=== PATIENT | female | born 1960 | race Caucasian/White ===

== ENCOUNTER 2017-08-07 16:15 | Inpatient (IN) | payer OTHER ==
[2017-08-06] MEDS: PHYTONADIONE 10 MG/1 ML AMPUL SQ SCH (00:45)
[~2017-08-07] VITALS: Ht 165.1 cm; Wt 63.5 kg
[2017-08-07] MEDS: MEROPENEM 1 G in IV NORMAL SALINE 100 ML IV SCH (00:45)
[2017-08-07] MEDS ORDERED: LORA2TAB95 PO (16:42)
[2017-08-07] MEDS ORDERED: PANT40TA4 PO (16:42)
[2017-08-07] MEDS ORDERED: LACT10SO PO (16:42)
[2017-08-07] MEDS ORDERED: MAG360OR61 PO (16:42)
[2017-08-07] MEDS ORDERED: ZOLP5TAB2 PO (16:42)
[2017-08-07] MEDS ORDERED: METR500T PO (16:42)
[2017-08-07] MEDS ORDERED: LEVO750T21 PO (16:42)
[2017-08-07] MEDS ORDERED: MAGN400O6 PO (16:42)
[2017-08-07] MEDS ORDERED: ACET-2154 PO (16:42)
[2017-08-07] MEDS ORDERED: PROP10TA10 PO (16:42)
[2017-08-07] MEDS ORDERED: THIA100T13 PO (16:42)
[2017-08-07] MEDS ORDERED: HYDR-3326 PO (16:42)
[2017-08-07] MEDS ORDERED: SPIR50TA PO (16:42)
[2017-08-07] MEDS ORDERED: FOLI1TAB16 PO (16:42)
[2017-08-07] MEDS ORDERED: ONDA4TAB5 PO (16:42)
[2017-08-07] MEDS ORDERED: IV NORMAL SALINE 1000 ML BAG IV ONE (16:45)
[2017-08-07 17:34] LABS: BILIRUBIN,DIRECT 6.6 mg/dL (0.0-0.2); BILIRUBIN,TOTAL 10.2 mg/dL (0.2-1.0); CREATININE 0.5 mg/dL (0.6-1.3); POTASSIUM 3.1 mmol/L (3.5-5.1); TOTAL PROTEIN, SERUM 5.3 g/dL (6.4-8.2)
[2017-08-07 17:42] LABS: THYROID STIMULATING HORMONE 1.997 mIU/mL (0.358-3.740)
[2017-08-07 17:45] LABS: MAGNESIUM 1.6 mg/dL (1.8-2.4)
[2017-08-07] MEDS ORDERED: PIPERACILLIN SODIUM/TAZOBACTAM 3.375 G in IV DEXTROSE 5% 50 ML IV ONE (17:45)
[2017-08-07] MEDS ORDERED: LEVOFLOXACIN 750 MG/D5W 150 ML PIGGYBACK IV ONE (17:45)
[2017-08-07] MEDS ORDERED: PIPERACILLIN/TAZOBACTAM/D5W 50 ML IV ONE (17:46)
[2017-08-07] MEDS ORDERED: LEVOFLOXACIN 750MG/D5W 150 ML IV ONE (17:46)
[2017-08-07] MEDS ORDERED: MAGNESIUM SULFATE/D5W 100 ML IV SCH (18:00)
[2017-08-07] MEDS ORDERED: POTASSIUM CHLORIDE 50 ML IV SCH (18:00)
[2017-08-07 18:09] LABS: BASOPHILS % (AUTO) 0.3 % (0.0-2.0); EOSINOPHILS # (AUTO) 0.2 K/uL (0.0-0.7); EOSINOPHILS % (AUTO) 1.8 % (0.0-7.0); HEMATOCRIT 30.6 % (31.2-41.9); HEMOGLOBIN 10.5 g/dL (10.9-14.3); LYMPHOCYTES # (AUTO) 0.7 K/uL (20.0-40.0); LYMPHOCYTES % (AUTO) 6.1 % (20.5-51.5); MEAN CORPUSCULAR HEMOGLOBIN 38.6 uug (24.7-32.8); MEAN CORPUSCULAR HGB CONC 34 g/dL (32.3-35.6); MEAN CORPUSCULAR VOLUME 112.5 fL (75.5-95.3); MONOCYTES # (AUTO) 0.8 K/uL (2.0-10.0); MONOCYTES % (AUTO) 6.8 % (0.0-11.0); NEUTROPHILS # (AUTO) 9.6 K/uL (1.8-8.9); RED BLOOD CELL COUNT(AUTO) 2.72 MIL/uL (3.63-4.92); WHITE BLOOD COUNT (AUTO) 11.4 K/uL (3.8-11.8)
[2017-08-07 18:10] LABS: PLATELET COUNT (AUTO) 43 K/uL (179-408)
[2017-08-07 18:27] LABS: BAND % (MANUAL) 5 % (0-10); NEUTROPHILS % (MANUAL) 80 % (42-75)
[2017-08-07 18:28] LABS: EOSINOPHILS % (MANUAL) 1 % (0-8); LYMPHOCYTES % (MANUAL) 9 % (20-40); MONOCYTES % (MANUAL) 5 % (2-10)
[2017-08-07] MEDS ORDERED: MAGNESIUM SULFATE/D5W 100 ML ONE (18:33)
[2017-08-07] MEDS ORDERED: POTASSIUM CHLORIDE 50 ML ONE (19:42)
[2017-08-07 21:43] VITALS: BP 97/54
[2017-08-07] MEDS ORDERED: MORPHINE SULFATE 4 MG/1 ML DISP.SYRIN IV PRN (23:00)
[2017-08-07] MEDS ORDERED: POTASSIUM CHLORIDE 20 MEQ in IV D5/ 0.9% NACL 1,000 ML IV PRN (23:00)
[2017-08-07] MEDS ORDERED: ALBUTEROL SULFATE 2.5 MG/3 ML NEBU NEB PRN (23:00)
[2017-08-07] MEDS ORDERED: IPRATROPIUM BROMIDE 0.5 MG/2.5 ML NEBU NEB PRN (23:00)
[2017-08-07] MEDS: LEVOFLOXACIN 500 MG/D5W 500 MG in PREMIXED 1 EACH IV SCH (23:00)
[2017-08-07] MEDS ORDERED: VANCOMYCIN IV 1,000 MG in IV DEXTROSE 5% 250 ML IV SCH (23:45)
[2017-08-08 00:07] VITALS: BP 103/50
[2017-08-08] MEDS ORDERED: MEROPENEM 1 G VIAL IV ONE (00:18)
[2017-08-08] MEDS: MEROPENEM 1 G in IV NORMAL SALINE 100 ML IV SCH ×4 (01:35→22:02)
[2017-08-08] MEDS ORDERED: VANCOMYCIN 1000 MG VIAL ONE (01:42)
[2017-08-08 04:00] VITALS: BP 103/57
[2017-08-08] MEDS ORDERED: PIPERACILLIN/TAZOBACTAM/D5W 3.375 G in PREMIXED 1 EACH IV SCH (06:00)
[2017-08-08 07:09] LABS: ALANINE AMINOTRANSFERASE 15 U/L (14-59); ALKALINE PHOSPHATASE 96 U/L (50-136); ASPARTATE AMINOTRANSFERASE 50 U/L (15-37); BILIRUBIN,TOTAL 9.9 mg/dL (0.2-1.0); CARBON DIOXIDE 28 mmol/L (21-32); CHLORIDE 104 mmol/L (98-107); CREATININE 0.6 mg/dL (0.6-1.3); GLUCOSE 65 mg/dL (74-106); HDL CHOLESTEROL 21 mg/dL (40-60); MAGNESIUM 1.6 mg/dL (1.8-2.4); PHOSPHOROUS 2.4 mg/dL (2.5-4.9); POTASSIUM 3.2 mmol/L (3.5-5.1); TOTAL PROTEIN, SERUM 5.1 g/dL (6.4-8.2); TRIGLYCERIDES 45 MG/DL (30-150); UREA NITROGEN, BLOOD 9 mg/dL (7-18)
[2017-08-08 07:14] LABS: IRON, SERUM 117 ug/dL (50-175)
[2017-08-08 07:41] LABS: CHOLESTEROL < 50 mg/dL (<200)
[2017-08-08 07:49] LABS: BASOPHILS # (AUTO) 0.1 K/uL (0.0-8.0); BASOPHILS % (AUTO) 0.8 % (0.0-2.0); EOSINOPHILS # (AUTO) 0.1 K/uL (0.0-0.7); LYMPHOCYTES # (AUTO) 0.6 K/uL (20.0-40.0)
[2017-08-08 07:51] LABS: EOSINOPHILS % (AUTO) 1.4 % (0.0-7.0); HEMATOCRIT 30.3 % (31.2-41.9); HEMOGLOBIN 10.3 g/dL (10.9-14.3); LYMPHOCYTES % (AUTO) 6.4 % (20.5-51.5); MEAN CORPUSCULAR HEMOGLOBIN 38.5 uug (24.7-32.8); MEAN CORPUSCULAR HGB CONC 34 g/dL (32.3-35.6); MEAN CORPUSCULAR VOLUME 112.9 fL (75.5-95.3); MONOCYTES # (AUTO) 0.7 K/uL (2.0-10.0); MONOCYTES % (AUTO) 7.9 % (0.0-11.0); NEUTROPHILS # (AUTO) 7.6 K/uL (1.8-8.9); NEUTROPHILS % (AUTO) 83.5 % (38.5-71.5); RED BLOOD CELL COUNT(AUTO) 2.68 MIL/uL (3.63-4.92); WHITE BLOOD COUNT (AUTO) 9.1 K/uL (3.8-11.8)
[2017-08-08 07:58] LABS: PLATELET COUNT (AUTO) 37 K/uL (179-408)
[2017-08-08] MEDS: FAMOTIDINE. 20 MG/2 ML VIAL IV SCH ×2 (09:01→20:40)
[2017-08-08 09:42] LABS: BAND % (MANUAL) 4 % (0-10); LYMPHOCYTES % (MANUAL) 6 % (20-40); METAMYELOCYTES % 7 % (0-1); MONOCYTES % (MANUAL) 3 % (2-10); MYELOCYTES % 1 % (0-0); NEUTROPHILS % (MANUAL) 79 % (42-75)
[2017-08-08 10:06] LABS: *BLOOD, URINE NEGATIVE (NEGATIVE); *CLARITY,URINE SLIGHTLY CLOUDY (CLEAR); *COLOR,URINE YELLOW (YELLOW); *KETONES,URINE NEGATIVE (NEGATIVE); *PROTEIN,URINE NEGATIVE (NEGATIVE); *UROBILINOGEN,URINE 0.2 E.U./dl (NORMAL); LEUKOCYTE ESTERASE ,URINE NEGATIVE (NEGATIVE); NITRITE, URINE NEGATIVE (NEGATIVE); UGLUCOSE NEGATIVE (NEGATIVE)
[2017-08-08] MEDS ORDERED: MAGNESIUM OXIDE 400 MG TABLET PO ONE (10:30)
[2017-08-08 10:44] LABS: *BILIRUBIN,URIN 1+ (NEGATIVE)
[2017-08-08 10:45] LABS: BACTERIA,URINE NONE SEEN /HPF (NONE SEEN); MUCUS,URINE FEW /LPF (0-FEW); RBC,URINE 0-3 /HPF (0-3); SQUAMOUS EPITHELIAL CELL,UR MODERATE /HPF (NONE SEEN); YEAST,URINE MODERATE /HPF (NONE SEEN)
[2017-08-08 11:32] VITALS: BP 100/55
[2017-08-08] MEDS: POTASSIUM PHOSPHATE MM 7.5 MMOL in IV DEXTROSE 5% 100 ML IV SCH ×2 (11:52→19:00)
[2017-08-08] MEDS: PROTEIN SUPPLEMENT (PROSTAT) 30 ML LIQUID PO SCH ×2 (11:52→17:29)
[2017-08-08] MEDS ORDERED: FLUCONAZOLE 200 MG/NS 100ML IV 100 MG in PREMIXED 1 EACH IV SCH (13:00)
[2017-08-08] MEDS ORDERED: MICAFUNGIN SODIUM 100 MG in IV NORMAL SALINE 100 ML IV SCH (14:00)
[2017-08-08 15:42] VITALS: BP 108/51
[2017-08-08] MEDS ORDERED: NEUTRA PHOS PACKET PO ONE (17:15)
[2017-08-08] MEDS: VANCOMYCIN IV 1 G in PREMIXED 0 EACH IV SCH ×2 (17:30→23:01)
[2017-08-08 20:36] VITALS: BP 102/55
[2017-08-08] MEDS: PHYTONADIONE 10 MG/1 ML AMPUL SQ SCH (23:01)
[2017-08-08] MEDS: LEVOFLOXACIN 500 MG/D5W 500 MG in PREMIXED 1 EACH IV SCH (23:09)
[2017-08-09] VITALS: BP 115/62
[2017-08-09] MEDS: VANCOMYCIN IV 1 G in PREMIXED 0 EACH IV SCH (02:10)
[2017-08-09 04:00] VITALS: BP 104/57
[2017-08-09] MEDS: MEROPENEM 1 G in IV NORMAL SALINE 100 ML IV SCH ×2 (05:09→17:15)
[2017-08-09 06:51] LABS: BASOPHILS # (AUTO) 0.1 K/uL (0.0-8.0); BASOPHILS % (AUTO) 0.9 % (0.0-2.0); EOSINOPHILS # (AUTO) 0.1 K/uL (0.0-0.7); EOSINOPHILS % (AUTO) 1.6 % (0.0-7.0); HEMATOCRIT 27.8 % (31.2-41.9); HEMOGLOBIN 9.7 g/dL (10.9-14.3); LYMPHOCYTES # (AUTO) 0.7 K/uL (20.0-40.0); MEAN CORPUSCULAR HEMOGLOBIN 40.6 uug (24.7-32.8); MEAN CORPUSCULAR HGB CONC 35 g/dL (32.3-35.6); MEAN CORPUSCULAR VOLUME 116.4 fL (75.5-95.3); MONOCYTES % (AUTO) 11.9 % (0.0-11.0); NEUTROPHILS # (AUTO) 6.2 K/uL (1.8-8.9); NEUTROPHILS % (AUTO) 76.6 % (38.5-71.5); WHITE BLOOD COUNT (AUTO) 8.1 K/uL (3.8-11.8)
[2017-08-09 07:06] LABS: RED BLOOD CELL COUNT(AUTO) 2.39 MIL/uL (3.63-4.92)
[2017-08-09 07:09] LABS: PLATELET COUNT (AUTO) 43 K/uL (179-408)
[2017-08-09 07:43] LABS: BILIRUBIN,TOTAL 8.7 mg/dL (0.2-1.0); CREATININE 0.7 mg/dL (0.6-1.3); MAGNESIUM 1.5 mg/dL (1.8-2.4); PHOSPHOROUS 1.9 mg/dL (2.5-4.9); POTASSIUM 3.3 mmol/L (3.5-5.1); TOTAL PROTEIN, SERUM 5.2 g/dL (6.4-8.2)
[2017-08-09] MEDS: PROTEIN SUPPLEMENT (PROSTAT) 30 ML LIQUID PO SCH ×3 (08:00→17:59)
[2017-08-09] MEDS: FAMOTIDINE. 20 MG/2 ML VIAL IV SCH ×2 (08:15→21:31)
[2017-08-09 09:11] LABS: BAND % (MANUAL) 5 % (0-10); EOSINOPHILS % (MANUAL) 3 % (0-8); LYMPHOCYTES % (MANUAL) 7 % (20-40); METAMYELOCYTES % 3 % (0-1); MONOCYTES % (MANUAL) 7 % (2-10); MYELOCYTES % 2 % (0-0); NEUTROPHILS % (MANUAL) 73 % (42-75)
[2017-08-09] MEDS ORDERED: Z GUARD REMEDY PASTE 57 GM TUBE TOP PRN (10:30)
[2017-08-09] MEDS: MAGNESIUM SULFATE/D5W 100 ML IV SCH ×2 (11:58→14:04)
[2017-08-09 12:06] VITALS: BP 94/49
[2017-08-09 15:12] VITALS: BP 97/55
[2017-08-09] MEDS: POTASSIUM PHOSPHATE MM 5 MMOL in IV DEXTROSE 5% 100 ML IV SCH ×2 (15:16→18:30)
[2017-08-09] MEDS ORDERED: VANCOMYCIN IV 750 MG in IV DEXTROSE 5% 250 ML IV SCH (16:00)
[2017-08-09] MEDS: VANCOMYCIN IV 750 MG in IV DEXTROSE 5% 250 ML IV SCH (17:24)
[2017-08-09] MEDS: Z GUARD REMEDY PASTE 57 GM TUBE TOP PRN (18:54)
[2017-08-09 20:05] VITALS: BP 99/61
[2017-08-09] MEDS: MICAFUNGIN SODIUM 100 MG in IV NORMAL SALINE 100 ML IV SCH (21:31)
[2017-08-09] MEDS: LEVOFLOXACIN 500 MG/D5W 500 MG in PREMIXED 1 EACH IV SCH (23:16)
[2017-08-09] MEDS: PHYTONADIONE 10 MG/1 ML AMPUL SQ SCH (23:18)
[2017-08-10] MEDS: MEROPENEM 1 G in IV NORMAL SALINE 100 ML IV SCH ×3 (00:59→16:48)
[2017-08-10] MEDS: POTASSIUM PHOSPHATE MM 5 MMOL in IV DEXTROSE 5% 100 ML IV SCH ×2 (01:15→04:40)
[2017-08-10] MEDS: VANCOMYCIN IV 750 MG in IV DEXTROSE 5% 250 ML IV SCH ×2 (03:09→10:51)
[2017-08-10 05:23] VITALS: BP 110/56
[2017-08-10] MEDS: PROTEIN SUPPLEMENT (PROSTAT) 30 ML LIQUID PO SCH ×3 (08:00→16:34)
[2017-08-10] MEDS ORDERED: IOHEXOL 300MG/ML 100 ML INFUS..BTL ONE (08:08)
[2017-08-10] MEDS ORDERED: IV NORMAL SALINE 100 ML ONE (08:08)
[2017-08-10] MEDS: FAMOTIDINE. 20 MG/2 ML VIAL IV SCH ×2 (09:00→20:43)
[2017-08-10 11:30] VITALS: BP 110/69
[2017-08-10] MEDS ORDERED: POTASSIUM PHOSPHATE MM 7.5 MMOL in IV DEXTROSE 5% 100 ML IV SCH (12:15)
[2017-08-10] MEDS ORDERED: MAGNESIUM SULFATE/D5W 100 ML IV SCH (12:15)
[2017-08-10] MEDS: LORAZEPAM 2 MG/1 ML VIAL IV PRN (15:21)
[2017-08-10 15:52] LABS: BASOPHILS # (AUTO) 0.1 K/uL (0.0-8.0); BASOPHILS % (AUTO) 0.6 % (0.0-2.0); CREATININE 0.5 mg/dL (0.6-1.3); EOSINOPHILS # (AUTO) 0.1 K/uL (0.0-0.7); EOSINOPHILS % (AUTO) 0.8 % (0.0-7.0); HEMATOCRIT 28.6 % (31.2-41.9); HEMOGLOBIN 9.9 g/dL (10.9-14.3); LYMPHOCYTES % (AUTO) 9.9 % (20.5-51.5); MEAN CORPUSCULAR HEMOGLOBIN 39.3 uug (24.7-32.8); MEAN CORPUSCULAR HGB CONC 35 g/dL (32.3-35.6); MEAN CORPUSCULAR VOLUME 113.8 fL (75.5-95.3); MONOCYTES # (AUTO) 1.6 K/uL (2.0-10.0); MONOCYTES % (AUTO) 15.6 % (0.0-11.0); NEUTROPHILS # (AUTO) 7.3 K/uL (1.8-8.9); NEUTROPHILS % (AUTO) 73.1 % (38.5-71.5); POTASSIUM 3.2 mmol/L (3.5-5.1); RED BLOOD CELL COUNT(AUTO) 2.51 MIL/uL (3.63-4.92)
[2017-08-10 15:58] LABS: BILIRUBIN,TOTAL 8.4 mg/dL (0.2-1.0); MAGNESIUM 1.3 mg/dL (1.8-2.4); PHOSPHOROUS 1.9 mg/dL (2.5-4.9); PLATELET COUNT (AUTO) 51 K/uL (179-408); TOTAL PROTEIN, SERUM 5.4 g/dL (6.4-8.2)
[2017-08-10 16:21] LABS: NEUTROPHILS % (MANUAL) 70 % (42-75)
[2017-08-10 16:22] LABS: BAND % (MANUAL) 5 % (0-10); METAMYELOCYTES % 3 % (0-1)
[2017-08-10 16:23] LABS: EOSINOPHILS % (MANUAL) 1 % (0-8); LYMPHOCYTES % (MANUAL) 13 % (20-40); MONOCYTES % (MANUAL) 8 % (2-10)
[2017-08-10] MEDS: VANCOMYCIN IV 1 G in PREMIXED 0 EACH IV SCH (18:20)
[2017-08-10 20:25] VITALS: BP 101/58
[2017-08-10] MEDS: MICAFUNGIN SODIUM 100 MG in IV NORMAL SALINE 100 ML IV SCH (20:44)
[2017-08-10] MEDS: LEVOFLOXACIN 500 MG/D5W 500 MG in PREMIXED 1 EACH IV SCH (22:24)
[2017-08-10] MEDS ORDERED: MAGNESIUM SULFATE/D5W 100 ML ONE (23:41)
[2017-08-10] MEDS ORDERED: IV DEXTROSE 5%-0.9%NS+20MeqKCL 1,000 ML IV ONE (23:46)
[2017-08-10] MEDS: MAGNESIUM SULFATE/D5W 100 ML IV SCH (23:54)
[2017-08-11] MEDS: POTASSIUM CHLORIDE 20 MEQ in IV D5/ 0.9% NACL 1,000 ML IV PRN (00:13)
[2017-08-11] MEDS: MEROPENEM 1 G in IV NORMAL SALINE 100 ML IV SCH ×3 (00:23→17:35)
[2017-08-11] MEDS: MAGNESIUM SULFATE/D5W 100 ML IV SCH ×2 (00:55→01:40)
[2017-08-11] MEDS: POTASSIUM PHOSPHATE MM 5 MMOL in IV DEXTROSE 5% 100 ML IV SCH ×4 (01:12→05:43)
[2017-08-11] MEDS: VANCOMYCIN IV 1 G in PREMIXED 0 EACH IV SCH ×3 (02:22→20:19)
[2017-08-11 06:00] VITALS: BP 102/58
[2017-08-11 06:39] LABS: BASOPHILS # (AUTO) 0.1 K/uL (0.0-8.0); BASOPHILS % (AUTO) 0.9 % (0.0-2.0); EOSINOPHILS # (AUTO) 0.1 K/uL (0.0-0.7); EOSINOPHILS % (AUTO) 0.8 % (0.0-7.0); HEMATOCRIT 26.8 % (31.2-41.9); HEMOGLOBIN 9.4 g/dL (10.9-14.3); LYMPHOCYTES % (AUTO) 13.6 % (20.5-51.5); MEAN CORPUSCULAR HEMOGLOBIN 40.5 uug (24.7-32.8); MEAN CORPUSCULAR HGB CONC 35 g/dL (32.3-35.6); MEAN CORPUSCULAR VOLUME 115.8 fL (75.5-95.3); MONOCYTES # (AUTO) 1.2 K/uL (2.0-10.0); MONOCYTES % (AUTO) 15.9 % (0.0-11.0); NEUTROPHILS # (AUTO) 5.2 K/uL (1.8-8.9); NEUTROPHILS % (AUTO) 68.8 % (38.5-71.5); WHITE BLOOD COUNT (AUTO) 7.5 K/uL (3.8-11.8)
[2017-08-11 06:56] LABS: RED BLOOD CELL COUNT(AUTO) 2.32 MIL/uL (3.63-4.92)
[2017-08-11 06:58] LABS: BILIRUBIN,TOTAL 7.9 mg/dL (0.2-1.0); CREATININE 0.5 mg/dL (0.6-1.3); MAGNESIUM 1.9 mg/dL (1.8-2.4); PHOSPHOROUS 2.4 mg/dL (2.5-4.9); PLATELET COUNT (AUTO) 46 K/uL (179-408); POTASSIUM 3.2 mmol/L (3.5-5.1); TOTAL PROTEIN, SERUM 5.2 g/dL (6.4-8.2)
[2017-08-11] MEDS: PROTEIN SUPPLEMENT (PROSTAT) 30 ML LIQUID PO SCH ×3 (08:00→17:00)
[2017-08-11 08:37] LABS: BAND % (MANUAL) 2 % (0-10); EOSINOPHILS % (MANUAL) 1 % (0-8); LYMPHOCYTES % (MANUAL) 15 % (20-40); MONOCYTES % (MANUAL) 14 % (2-10); NEUTROPHILS % (MANUAL) 68 % (42-75)
[2017-08-11] MEDS: FAMOTIDINE. 20 MG/2 ML VIAL IV SCH ×2 (09:08→21:36)
[2017-08-11] MEDS: FUROSEMIDE 20 MG/2 ML VIAL IV SCH (09:08)
[2017-08-11 12:01] VITALS: BP 101/70
[2017-08-11 15:14] VITALS: BP 95/60
[2017-08-11] MEDS: POTASSIUM PHOSPHATE MM 7.5 MMOL in IV DEXTROSE 5% 100 ML IV SCH ×2 (15:47→21:02)
[2017-08-11 20:00] VITALS: BP 105/62
[2017-08-11] MEDS: MICAFUNGIN SODIUM 100 MG in IV NORMAL SALINE 100 ML IV SCH (21:36)
[2017-08-12] MEDS: MEROPENEM 1 G in IV NORMAL SALINE 100 ML IV SCH ×3 (00:32→17:52)
[2017-08-12] MEDS: VANCOMYCIN IV 1 G in PREMIXED 0 EACH IV SCH ×3 (01:24→18:52)
[2017-08-12 06:00] VITALS: BP 104/64
[2017-08-12 07:03] LABS: EOSINOPHILS # (AUTO) 0.1 K/uL (0.0-0.7); HEMOGLOBIN 9.9 g/dL (10.9-14.3); LYMPHOCYTES # (AUTO) 0.8 K/uL (20.0-40.0); MEAN CORPUSCULAR HEMOGLOBIN 39.6 uug (24.7-32.8); MONOCYTES % (AUTO) 17.4 % (0.0-11.0)
[2017-08-12 07:05] LABS: BASOPHILS % (AUTO) 0.7 % (0.0-2.0); EOSINOPHILS % (AUTO) 1.4 % (0.0-7.0); HEMATOCRIT 28.9 % (31.2-41.9); MEAN CORPUSCULAR HGB CONC 34 g/dL (32.3-35.6); MEAN CORPUSCULAR VOLUME 114.9 fL (75.5-95.3); NEUTROPHILS % (AUTO) 67.5 % (38.5-71.5); RED BLOOD CELL COUNT(AUTO) 2.51 MIL/uL (3.63-4.92)
[2017-08-12 07:09] LABS: CREATININE 0.5 mg/dL (0.6-1.3); PHOSPHOROUS 2.9 mg/dL (2.5-4.9); POTASSIUM 3.6 mmol/L (3.5-5.1)
[2017-08-12 07:18] LABS: MAGNESIUM 1.2 mg/dL (1.8-2.4)
[2017-08-12 07:31] LABS: PLATELET COUNT (AUTO) 43 K/uL (179-408)
[2017-08-12] MEDS: PROTEIN SUPPLEMENT (PROSTAT) 30 ML LIQUID PO SCH ×3 (08:00→17:54)
[2017-08-12 08:52] LABS: BAND % (MANUAL) 1 % (0-10); LYMPHOCYTES % (MANUAL) 20 % (20-40); MONOCYTES % (MANUAL) 5 % (2-10); NEUTROPHILS % (MANUAL) 74 % (42-75)
[2017-08-12] MEDS: POTASSIUM CHLORIDE 20 MEQ in IV D5/ 0.9% NACL 1,000 ML IV PRN (09:33)
[2017-08-12] MEDS: FUROSEMIDE 20 MG/2 ML VIAL IV SCH (09:33)
[2017-08-12] MEDS: FAMOTIDINE. 20 MG/2 ML VIAL IV SCH ×2 (09:33→20:39)
[2017-08-12] MEDS: LORAZEPAM 2 MG/1 ML VIAL IV PRN ×2 (09:50→18:57)
[2017-08-12 11:33] VITALS: BP 99/57
[2017-08-12] MEDS ORDERED: PHYTONADIONE 10 MG/1 ML AMPUL SQ ONE (12:30)
[2017-08-12] MEDS: MAGNESIUM SULFATE/D5W 100 ML IV SCH ×3 (12:58→21:44)
[2017-08-12 16:17] VITALS: BP 104/62
[2017-08-12] MEDS ORDERED: PROTEIN SUPPLEMENT (PROSTAT) 30 ML LIQUID PO SCH (17:00)
[2017-08-12] MEDS: CLOTRIMAZOLE 1% CREAM 30 GM TUBE TOP SCH (17:53)
[2017-08-12] MEDS: MICAFUNGIN SODIUM 100 MG in IV NORMAL SALINE 100 ML IV SCH (20:40)
[2017-08-12 20:45] VITALS: BP 110/59
[2017-08-13] MEDS: VANCOMYCIN IV 1 G in PREMIXED 0 EACH IV SCH ×3 (01:30→18:50)
[2017-08-13] MEDS: PROTEIN SUPPLEMENT (PROSTAT) 30 ML LIQUID PO SCH ×3 (08:00→17:47)
[2017-08-13] MEDS ORDERED: PHYTONADIONE 5 MG TABLET PO SCH (09:00)
[2017-08-13] MEDS: FUROSEMIDE 20 MG/2 ML VIAL IV SCH (09:05)
[2017-08-13] MEDS: MEROPENEM 1 G in IV NORMAL SALINE 100 ML IV SCH ×4 (09:05→17:47)
[2017-08-13] MEDS: FAMOTIDINE. 20 MG/2 ML VIAL IV SCH ×2 (09:05→21:43)
[2017-08-13] MEDS: CLOTRIMAZOLE 1% CREAM 30 GM TUBE TOP SCH ×2 (09:07→17:47)
[2017-08-13 11:29] VITALS: BP 124/67
[2017-08-13 15:29] VITALS: BP 99/68
[2017-08-13 20:37] VITALS: BP 108/68
[2017-08-13] MEDS: POTASSIUM CHLORIDE 20 MEQ in IV D5/ 0.9% NACL 1,000 ML IV PRN (21:43)
[2017-08-14] MEDS: VANCOMYCIN IV 1 G in PREMIXED 0 EACH IV SCH ×3 (01:00→19:05)
[2017-08-14 06:43] VITALS: BP 125/59
[2017-08-14 06:52] LABS: BILIRUBIN,TOTAL 6.8 mg/dL (0.2-1.0); CREATININE 0.6 mg/dL (0.6-1.3); MAGNESIUM 1.3 mg/dL (1.8-2.4); PHOSPHOROUS 2.5 mg/dL (2.5-4.9); POTASSIUM 3.4 mmol/L (3.5-5.1); TOTAL PROTEIN, SERUM 5.6 g/dL (6.4-8.2)
[2017-08-14 08:00] LABS: WHITE BLOOD COUNT (AUTO) 5.4 K/UL (4.0-11.2)
[2017-08-14] MEDS: PROTEIN SUPPLEMENT (PROSTAT) 30 ML LIQUID PO SCH ×3 (08:00→16:53)
[2017-08-14 08:01] LABS: HEMATOCRIT 28.6 % (37-47); HEMOGLOBIN 9.9 G/DL (12.0-16.0); MEAN CORPUSCULAR HEMOGLOBIN 39.5 UUG (27.0-31.0); MEAN CORPUSCULAR HGB CONC 34 g/dL (32.0-37.0); MEAN CORPUSCULAR VOLUME 114.6 FL (81.0-99.0)
[2017-08-14 08:02] LABS: LYMPHOCYTES % (AUTO) 18.7 % (20.5-51.5); NEUTROPHILS % (AUTO) 55.2 % (38.5-71.5); PLATELET COUNT (AUTO) 35 K/UL (150-450)
[2017-08-14 08:03] LABS: BASOPHILS # (AUTO) 0.1 K/uL (0.0-8.0); BASOPHILS % (AUTO) 1.1 % (0.0-2.0); EOSINOPHILS # (AUTO) 0.1 K/uL (0.0-0.7); EOSINOPHILS % (AUTO) 1.3 % (0.0-7.0); MONOCYTES # (AUTO) 1.3 K/UL (0.1-1.30); MONOCYTES % (AUTO) 23.7 % (0.0-11.0)
[2017-08-14] MEDS: FAMOTIDINE. 20 MG/2 ML VIAL IV SCH (09:19)
[2017-08-14] MEDS: FLUCONAZOLE 100 MG TABLET PO SCH (09:19)
[2017-08-14] MEDS: MEROPENEM 1 G in IV NORMAL SALINE 100 ML IV SCH ×4 (09:20→16:53)
[2017-08-14] MEDS: CLOTRIMAZOLE 1% CREAM 30 GM TUBE TOP SCH ×2 (09:20→16:53)
[2017-08-14] MEDS: FUROSEMIDE 20 MG/2 ML VIAL IV SCH (09:20)
[2017-08-14 09:40] LABS: BAND % (MANUAL) 4 % (0-10); EOSINOPHILS % (MANUAL) 1 % (0-8); LYMPHOCYTES % (MANUAL) 19 % (20-40); METAMYELOCYTES % 4 % (0-1); MONOCYTES % (MANUAL) 17 % (2-10); NEUTROPHILS % (MANUAL) 55 % (42-75)
[2017-08-14 11:10] VITALS: BP 117/68
[2017-08-14] MEDS ORDERED: POTASSIUM CHLORIDE 20 MEQ TAB.PRT.SR PO ONE (11:15)
[2017-08-14] MEDS: ACIDOPHILUS/BULGARICUS CHEW TAB PO SCH ×3 (11:56→21:27)
[2017-08-14] MEDS ORDERED: ACIDOPHILUS/BULGARICUS CHEW TAB PO SCH (14:00)
[2017-08-14 15:20] VITALS: BP 109/66
[2017-08-14 20:00] VITALS: BP 107/65
[2017-08-14] MEDS: MAGNESIUM OXIDE 400 MG TABLET PO SCH (21:27)
[2017-08-14] MEDS: FAMOTIDINE 20 MG TABLET PO SCH (21:27)
[2017-08-15] MEDS: MEROPENEM 1 G in IV NORMAL SALINE 100 ML IV SCH ×3 (00:32→16:59)
[2017-08-15] MEDS: POTASSIUM CHLORIDE 20 MEQ in IV D5/ 0.9% NACL 1,000 ML IV PRN (00:32)
[2017-08-15] MEDS: VANCOMYCIN IV 1 G in PREMIXED 0 EACH IV SCH ×3 (02:53→18:02)
[2017-08-15 04:49] VITALS: BP 102/59
[2017-08-15] MEDS: ACIDOPHILUS/BULGARICUS CHEW TAB PO SCH ×3 (06:35→21:10)
[2017-08-15 06:43] LABS: BASOPHILS # (AUTO) 0.1 K/uL (0.0-8.0); BASOPHILS % (AUTO) 1.2 % (0.0-2.0); EOSINOPHILS # (AUTO) 0.1 K/uL (0.0-0.7); EOSINOPHILS % (AUTO) 2.7 % (0.0-7.0); HEMATOCRIT 27.3 % (31.2-41.9); HEMOGLOBIN 9.3 g/dL (10.9-14.3); LYMPHOCYTES # (AUTO) 1.3 K/uL (20.0-40.0); LYMPHOCYTES % (AUTO) 23.1 % (20.5-51.5); MEAN CORPUSCULAR HEMOGLOBIN 39.4 uug (24.7-32.8); MEAN CORPUSCULAR HGB CONC 34 g/dL (32.3-35.6); MEAN CORPUSCULAR VOLUME 115.3 fL (75.5-95.3); MONOCYTES # (AUTO) 1.2 K/uL (2.0-10.0); MONOCYTES % (AUTO) 22.5 % (0.0-11.0); NEUTROPHILS # (AUTO) 2.8 K/uL (1.8-8.9); NEUTROPHILS % (AUTO) 50.5 % (38.5-71.5); WHITE BLOOD COUNT (AUTO) 5.5 K/uL (3.8-11.8)
[2017-08-15 06:55] LABS: CREATININE 0.5 mg/dL (0.6-1.3); MAGNESIUM 1.3 mg/dL (1.8-2.4); PHOSPHOROUS 2.5 mg/dL (2.5-4.9); POTASSIUM 3.5 mmol/L (3.5-5.1)
[2017-08-15 07:48] LABS: PLATELET COUNT (AUTO) 29 K/uL (179-408); RED BLOOD CELL COUNT(AUTO) 2.37 MIL/uL (3.63-4.92)
[2017-08-15] MEDS: PROTEIN SUPPLEMENT (PROSTAT) 30 ML LIQUID PO SCH ×3 (08:21→16:59)
[2017-08-15] MEDS: FUROSEMIDE 20 MG/2 ML VIAL IV SCH (08:22)
[2017-08-15] MEDS: FLUCONAZOLE 100 MG TABLET PO SCH (08:22)
[2017-08-15] MEDS: CLOTRIMAZOLE 1% CREAM 30 GM TUBE TOP SCH ×2 (08:22→16:59)
[2017-08-15] MEDS: FAMOTIDINE 20 MG TABLET PO SCH ×2 (08:22→21:10)
[2017-08-15 10:36] LABS: BAND % (MANUAL) 5 % (0-10); EOSINOPHILS % (MANUAL) 2 % (0-8); LYMPHOCYTES % (MANUAL) 21 % (20-40); METAMYELOCYTES % 1 % (0-1); MONOCYTES % (MANUAL) 20 % (2-10); NEUTROPHILS % (MANUAL) 51 % (42-75)
[2017-08-15] MEDS ORDERED: MAGNESIUM OXIDE 400 MG TABLET PO ONE (11:45)
[2017-08-15] MEDS ORDERED: POTASSIUM CHLORIDE 20 MEQ TAB.PRT.SR PO ONE (11:45)
[2017-08-15] MEDS ORDERED: Z GUARD REMEDY PASTE 57 GM TUBE TOP PRN (12:30)
[2017-08-15 20:30] VITALS: BP 100/56
[2017-08-15] MEDS: MAGNESIUM OXIDE 400 MG TABLET PO SCH (21:10)
[2017-08-16 04:00] VITALS: BP 94/61
[2017-08-16] MEDS: POTASSIUM CHLORIDE 20 MEQ in IV D5/ 0.9% NACL 1,000 ML IV PRN (05:12)
[2017-08-16] MEDS: ACIDOPHILUS/BULGARICUS CHEW TAB PO SCH ×3 (05:12→21:37)
[2017-08-16] MEDS: PROTEIN SUPPLEMENT (PROSTAT) 30 ML LIQUID PO SCH ×3 (07:57→16:38)
[2017-08-16] MEDS: CLOTRIMAZOLE 1% CREAM 30 GM TUBE TOP SCH ×2 (08:00→16:38)
[2017-08-16] MEDS: FAMOTIDINE 20 MG TABLET PO SCH ×2 (08:00→20:23)
[2017-08-16] MEDS: FLUCONAZOLE 100 MG TABLET PO SCH (08:00)
[2017-08-16] MEDS: FUROSEMIDE 20 MG/2 ML VIAL IV SCH (08:58)
[2017-08-16 12:04] VITALS: BP 110/63
[2017-08-16 16:03] VITALS: BP_SYST 102
[2017-08-16 20:00] VITALS: BP 97/55
[2017-08-16] MEDS: CITALOPRAM 10 MG TABLET PO SCH (20:23)
[2017-08-16] MEDS: MAGNESIUM OXIDE 400 MG TABLET PO SCH (20:23)
[2017-08-17] MEDS: POTASSIUM CHLORIDE 20 MEQ in IV D5/ 0.9% NACL 1,000 ML IV PRN ×2 (00:58→16:23)
[2017-08-17 06:02] VITALS: BP 90/52
[2017-08-17] MEDS: ACIDOPHILUS/BULGARICUS CHEW TAB PO SCH ×3 (06:11→22:04)
[2017-08-17 06:17] LABS: EOSINOPHILS # (AUTO) 0.2 K/uL (0.0-0.7); HEMATOCRIT 25.9 % (31.2-41.9); LYMPHOCYTES # (AUTO) 1.1 K/uL (20.0-40.0); MEAN CORPUSCULAR HGB CONC 34 g/dL (32.3-35.6); MONOCYTES # (AUTO) 0.8 K/uL (2.0-10.0)
[2017-08-17 06:18] LABS: BASOPHILS % (AUTO) 1.1 % (0.0-2.0); EOSINOPHILS % (AUTO) 3.7 % (0.0-7.0); HEMOGLOBIN 8.8 g/dL (10.9-14.3); LYMPHOCYTES % (AUTO) 25.2 % (20.5-51.5); MEAN CORPUSCULAR HEMOGLOBIN 39.3 uug (24.7-32.8); MONOCYTES % (AUTO) 18.6 % (0.0-11.0); NEUTROPHILS # (AUTO) 2.3 K/uL (1.8-8.9); NEUTROPHILS % (AUTO) 51.4 % (38.5-71.5); WHITE BLOOD COUNT (AUTO) 4.4 K/uL (3.8-11.8)
[2017-08-17 06:22] LABS: RED BLOOD CELL COUNT(AUTO) 2.25 MIL/uL (3.63-4.92)
[2017-08-17 06:24] LABS: PLATELET COUNT (AUTO) 21 K/uL (179-408)
[2017-08-17 06:34] LABS: BILIRUBIN,TOTAL 6.2 mg/dL (0.2-1.0); CREATININE 0.6 mg/dL (0.6-1.3); MAGNESIUM 1.3 mg/dL (1.8-2.4); PHOSPHOROUS 2.8 mg/dL (2.5-4.9); TOTAL PROTEIN, SERUM 5.4 g/dL (6.4-8.2)
[2017-08-17 06:54] LABS: BAND % (MANUAL) 5 % (0-10); BASOPHILS % (MANUAL) 1 % (0-2); EOSINOPHILS % (MANUAL) 6 % (0-8); LYMPHOCYTES % (MANUAL) 24 % (20-40); MONOCYTES % (MANUAL) 17 % (2-10); MYELOCYTES % 1 % (0-0); NEUTROPHILS % (MANUAL) 46 % (42-75)
[2017-08-17] MEDS: PROTEIN SUPPLEMENT (PROSTAT) 30 ML LIQUID PO SCH ×3 (08:00→16:53)
[2017-08-17 08:43] VITALS: BP 116/70
[2017-08-17] MEDS: FUROSEMIDE 20 MG/2 ML VIAL IV SCH (08:56)
[2017-08-17] MEDS: FAMOTIDINE 20 MG TABLET PO SCH ×2 (08:56→22:04)
[2017-08-17] MEDS: CLOTRIMAZOLE 1% CREAM 30 GM TUBE TOP SCH ×2 (08:56→16:49)
[2017-08-17] MEDS: FLUCONAZOLE 100 MG TABLET PO SCH (08:56)
[2017-08-17] MEDS: CITALOPRAM 10 MG TABLET PO SCH (08:56)
[2017-08-17 11:12] VITALS: BP 93/52
[2017-08-17] MEDS ORDERED: PHYTONADIONE 10 MG/1 ML AMPUL SQ ONE (12:30)
[2017-08-17] MEDS ORDERED: MAGNESIUM OXIDE 400 MG TABLET PO ONE (12:30)
[2017-08-17 15:32] VITALS: BP 132/57
[2017-08-17 20:51] VITALS: BP 100/62
[2017-08-17] MEDS ORDERED: MAGNESIUM OXIDE 400 MG TABLET ONE ×2 (21:50→22:33)
[2017-08-17] MEDS: MAGNESIUM OXIDE 400 MG TABLET PO SCH (22:08)
[2017-08-18] VITALS (8 sets, daily range): BP systolic 92–119; BP diastolic 49–62
[2017-08-18] MEDS: ACIDOPHILUS/BULGARICUS CHEW TAB PO SCH ×3 (06:12→22:15)
[2017-08-18 07:17] LABS: BILIRUBIN,TOTAL 6.8 mg/dL (0.2-1.0); CREATININE 0.5 mg/dL (0.6-1.3); MAGNESIUM 1.5 mg/dL (1.8-2.4); PHOSPHOROUS 2.9 mg/dL (2.5-4.9); POTASSIUM 3.5 mmol/L (3.5-5.1); TOTAL PROTEIN, SERUM 5.8 g/dL (6.4-8.2)
[2017-08-18 07:58] LABS: BASOPHILS # (AUTO) 0.1 K/uL (0.0-8.0); BASOPHILS % (AUTO) 2.3 % (0.0-2.0); EOSINOPHILS # (AUTO) 0.2 K/uL (0.0-0.7); EOSINOPHILS % (AUTO) 4.2 % (0.0-7.0); HEMATOCRIT 24.6 % (31.2-41.9); HEMOGLOBIN 8.5 g/dL (10.9-14.3); LYMPHOCYTES % (AUTO) 19.1 % (20.5-51.5); MEAN CORPUSCULAR HEMOGLOBIN 39.2 uug (24.7-32.8); MEAN CORPUSCULAR HGB CONC 35 g/dL (32.3-35.6); MEAN CORPUSCULAR VOLUME 113.3 fL (75.5-95.3); MONOCYTES # (AUTO) 0.7 K/uL (2.0-10.0); MONOCYTES % (AUTO) 13.5 % (0.0-11.0); NEUTROPHILS # (AUTO) 3.2 K/uL (1.8-8.9); NEUTROPHILS % (AUTO) 60.9 % (38.5-71.5); WHITE BLOOD COUNT (AUTO) 5.2 K/uL (3.8-11.8)
[2017-08-18 07:59] LABS: RED BLOOD CELL COUNT(AUTO) 2.17 MIL/uL (3.63-4.92)
[2017-08-18 08:01] LABS: PLATELET COUNT (AUTO) 41 K/uL (179-408)
[2017-08-18] MEDS: FUROSEMIDE 20 MG/2 ML VIAL IV SCH (08:52)
[2017-08-18] MEDS: FAMOTIDINE 20 MG TABLET PO SCH ×2 (08:52→20:42)
[2017-08-18] MEDS: CITALOPRAM 10 MG TABLET PO SCH (08:52)
[2017-08-18] MEDS: FLUCONAZOLE 100 MG TABLET PO SCH (08:52)
[2017-08-18] MEDS: PROTEIN SUPPLEMENT (PROSTAT) 30 ML LIQUID PO SCH ×3 (08:53→17:46)
[2017-08-18] MEDS: CLOTRIMAZOLE 1% CREAM 30 GM TUBE TOP SCH ×2 (08:55→17:47)
[2017-08-18 10:48] LABS: BAND % (MANUAL) 4 % (0-10); EOSINOPHILS % (MANUAL) 3 % (0-8); LYMPHOCYTES % (MANUAL) 21 % (20-40); METAMYELOCYTES % 1 % (0-1); MONOCYTES % (MANUAL) 8 % (2-10); MYELOCYTES % 1 % (0-0); NEUTROPHILS % (MANUAL) 61 % (42-75)
[2017-08-18 10:54] LABS: REACTIVE LYMPHOCYTES 1 % (0-0)
[2017-08-18] MEDS: MAGNESIUM SULFATE/D5W 100 ML IV SCH ×2 (14:08→15:12)
[2017-08-18] MEDS: POTASSIUM CHLORIDE 20 MEQ in IV D5/ 0.9% NACL 1,000 ML IV PRN (17:53)
[2017-08-18] MEDS: MAGNESIUM OXIDE 400 MG TABLET PO SCH (20:42)
[2017-08-19] MEDS: ACIDOPHILUS/BULGARICUS CHEW TAB PO SCH ×2 (05:19→13:53)
[2017-08-19 06:22] VITALS: BP 108/63
[2017-08-19] MEDS: PROTEIN SUPPLEMENT (PROSTAT) 30 ML LIQUID PO SCH ×3 (08:36→16:40)
[2017-08-19] MEDS: FAMOTIDINE 20 MG TABLET PO SCH (08:36)
[2017-08-19] MEDS: MAGNESIUM OXIDE 400 MG TABLET PO SCH (08:36)
[2017-08-19] MEDS: FUROSEMIDE 20 MG/2 ML VIAL IV SCH (08:36)
[2017-08-19] MEDS: CITALOPRAM 10 MG TABLET PO SCH (08:36)
[2017-08-19] MEDS: Z GUARD REMEDY PASTE 57 GM TUBE TOP PRN (08:37)
[2017-08-19] MEDS: CLOTRIMAZOLE 1% CREAM 30 GM TUBE TOP SCH ×2 (08:37→16:58)
[2017-08-19 09:28] LABS: CREATININE 0.6 mg/dL (0.6-1.3); MAGNESIUM 1.7 mg/dL (1.8-2.4); POTASSIUM 3.3 mmol/L (3.5-5.1)
[2017-08-19 11:05] VITALS: BP 99/55
[2017-08-19] MEDS ORDERED: POTASSIUM CHLORIDE 20 MEQ TAB.PRT.SR PO ONE (15:00)
[2017-08-19 15:13] VITALS: BP 96/54
[2017-08-19] MEDS ORDERED: MAGNESIUM OXIDE 400 MG TABLET PO ONE (16:45)
[2017-08-19] MEDS ORDERED: MAGNESIUM SULFATE/D5W 100 ML IV SCH (16:45)
== END 2017-08-19 17:05 | DRG 720 ==
LOC: ER 16:15 → TELE 20:36 → MED 08-09 13:37
PROVIDERS: ADMIT Internal Medicine; ATTEND Internal Medicine
PROC: 02HV33Z Insertion of Infusion Device into Superior Vena Cava, Percutaneous Approach (ICD-10-PCS; principal; 2017-08-09)
PROC: B548ZZA Ultrasonography of Superior Vena Cava, Guidance (ICD-10-PCS; principal; 2017-08-09)
PROC: 30233R1 Transfusion of Nonautologous Platelets into Peripheral Vein, Percutaneous Approach (ICD-10-PCS; 2017-08-18)
DX: A41.9 Sepsis, unspecified organism (principal); J69.0 Pneumonitis due to inhalation of food and vomit; E43 Unspecified severe protein-calorie malnutrition; J91.8 Pleural effusion in other conditions classified elsewhere; D61.818 Other pancytopenia; K85.90 Acute pancreatitis without necrosis or infection, unspecified; G92 Toxic encephalopathy; E46 Unspecified protein-calorie malnutrition; D68.9 Coagulation defect, unspecified; Z66 Do not resuscitate; R18.8 Other ascites; J44.0 Chronic obstructive pulmonary disease with (acute) lower respiratory infection; K76.6 Portal hypertension; E83.42 Hypomagnesemia; K70.30 Alcoholic cirrhosis of liver without ascites; K72.90 Hepatic failure, unspecified without coma; B37.49 Other urogenital candidiasis; D53.9 Nutritional anemia, unspecified; F10.10 Alcohol abuse, uncomplicated; E87.6 Hypokalemia; N20.0 Calculus of kidney; K31.89 Other diseases of stomach and duodenum; K80.20 Calculus of gallbladder without cholecystitis without obstruction; K44.9 Diaphragmatic hernia without obstruction or gangrene; Z90.710 Acquired absence of both cervix and uterus; E88.09 Other disorders of plasma-protein metabolism, not elsewhere classified; D69.59 Other secondary thrombocytopenia; I45.81 Long QT syndrome; K52.9 Noninfective gastroenteritis and colitis, unspecified; D12.4 Benign neoplasm of descending colon
CPT/HCPCS: 36415; 36569; 70030-TC; 71045; 74181; 78445; 83550; 83605; 83690; 83735; 84100; 84443; 85025; 85610; 85730; 86850; 86900; 86901; 87040; 87086; 93005; 97110; 97116; 97530; A4663; A9537; C1751; C1758; J1940; J1956; J2060; J2185; J2248; J2270; J2543; J3370; J3430; J3475; J3480; J3490; J7030; J7042; J7050; J7060; P9021; P9035-BL; Q9967

== ENCOUNTER 2018-11-02 10:39 | Inpatient (IN) | payer OTHER ==
[~2018-11-02] VITALS: Ht 165.1 cm; Wt 62.6 kg
[~2018-11-02 10:39] MED LIST: FOLI1TAB16 PO; LACT10SO PO; LORA2TAB95 PO; MAG360OR61 PO; ONDA4TAB5 PO; PANT40TA4 PO; PROP10TA10 PO; SPIR50TA PO; THIA100T13 PO; ZOLP5TAB2 PO
[2018-11-02] MEDS ORDERED: IV NORMAL SALINE 500 ML BAG IV ONE (11:00)
[2018-11-02] MEDS ORDERED: SPIR100T5 PO (11:08)
[2018-11-02] MEDS ORDERED: HYDR10SY16 PO (11:08)
[2018-11-02] MEDS ORDERED: FURO-151 PO (11:08)
[2018-11-02] MEDS ORDERED: PANT40TA2 PO (11:08)
[2018-11-02] MEDS ORDERED: CITA20TA19 PO (11:08)
[2018-11-02] MEDS ORDERED: PROP10TA10 PO (11:08)
[2018-11-02] MEDS ORDERED: MAGN400T6 PO (11:08)
[2018-11-02] MEDS ORDERED: LACT10SO PO (11:08)
[2018-11-02] MEDS ORDERED: ALBU0.63 IH (11:08)
[2018-11-02] MEDS ORDERED: SPIR25TA6 PO (11:08)
[2018-11-02] MEDS ORDERED: TRAZ-182 PO (11:08)
[2018-11-02 11:22] LABS: CARBON DIOXIDE 27 mmol/L (21-32); CHLORIDE 92 mmol/L (98-107); CREATININE 0.6 mg/dL (0.6-1.3); GLUCOSE 93 mg/dL (74-106); UREA NITROGEN, BLOOD 11 mg/dL (7-18)
[2018-11-02 11:24] LABS: POTASSIUM 2.5 mmol/L (3.5-5.1)
[2018-11-02 11:25] LABS: BASOPHILS % (AUTO) 0.2 % (0.0-2.0); EOSINOPHILS # (AUTO) 0.1 K/uL (0.0-0.7); HEMATOCRIT 34.7 % (31.2-41.9); LYMPHOCYTES # (AUTO) 0.5 K/uL (20.0-40.0); MONOCYTES # (AUTO) 0.6 K/uL (2.0-10.0); RED BLOOD CELL COUNT(AUTO) 3.19 MIL/uL (3.63-4.92)
[2018-11-02 11:27] LABS: EOSINOPHILS % (AUTO) 1.1 % (0.0-7.0); HEMOGLOBIN 12.1 g/dL (10.9-14.3); LYMPHOCYTES % (AUTO) 5.2 % (20.5-51.5); MEAN CORPUSCULAR HGB CONC 35 g/dL (32.3-35.6); MEAN CORPUSCULAR VOLUME 109.1 fL (75.5-95.3); MONOCYTES % (AUTO) 5.7 % (0.0-11.0); NEUTROPHILS # (AUTO) 8.7 K/uL (1.8-8.9); NEUTROPHILS % (AUTO) 87.8 % (38.5-71.5); WHITE BLOOD COUNT (AUTO) 9.9 K/uL (3.8-11.8)
[2018-11-02] MEDS ORDERED: POTASSIUM BICARBONATE/CIT AC 25 MEQ TABLET.EFF PO ONE (11:30)
[2018-11-02] MEDS ORDERED: POTASSIUM CHLORIDE 50 ML IV SCH (11:30)
--- NOTE | 2018-11-02 11:30 | NUR ---
PT TO CT SCAN
[2018-11-02 11:32] LABS: ALANINE AMINOTRANSFERASE 32 U/L (14-59); ALKALINE PHOSPHATASE 178 U/L (50-136); ASPARTATE AMINOTRANSFERASE 66 U/L (15-37); BILIRUBIN,DIRECT 12.4 mg/dL (0.0-0.2); BILIRUBIN,TOTAL 20.2 mg/dL (0.2-1.0); TOTAL PROTEIN, SERUM 5.5 g/dL (6.4-8.2)
[2018-11-02] MEDS ORDERED: POTASSIUM BICARBONATE/CIT AC 25 MEQ TABLET.EFF ONE (11:33)
[2018-11-02 11:34] LABS: PLATELET COUNT (AUTO) 47 K/uL (179-408)
[2018-11-02] MEDS ORDERED: POTASSIUM CHLORIDE 50 ML ONE (11:34)
[2018-11-02 11:37] LABS: THYROID STIMULATING HORMONE 1.965 mIU/mL (0.358-3.740)
[2018-11-02] MEDS ORDERED: MAGNESIUM SULFATE/D5W 100 ML IV SCH (12:00)
[2018-11-02 12:06] LABS: BAND % (MANUAL) 2 % (0-10); LYMPHOCYTES % (MANUAL) 5 % (20-40); MONOCYTES % (MANUAL) 13 % (2-10); NEUTROPHILS % (MANUAL) 80 % (42-75)
--- NOTE | 2018-11-02 12:10 | NUR ---
ASSISSTED PT TO BEDSIDE COMMODE. URINE SENT
--- NOTE | 2018-11-02 12:15 | NUR ---
Paged [facility], for admit. awaiting call back from Dr Cruz.
[2018-11-02] MEDS ORDERED: MAGNESIUM SULFATE/D5W 100 ML ONE (12:33)
[2018-11-02 12:55] LABS: *BILIRUBIN,URIN 3+ (NEGATIVE); *BLOOD, URINE 3+ (NEGATIVE); *CLARITY,URINE CLOUDY (CLEAR); *COLOR,URINE DARK YELLOW (YELLOW); *KETONES,URINE NEGATIVE (NEGATIVE); LEUKOCYTE ESTERASE ,URINE 2+ (NEGATIVE); NITRITE, URINE NEGATIVE (NEGATIVE); UGLUCOSE NEGATIVE (NEGATIVE)
[2018-11-02 13:00] LABS: BACTERIA,URINE MANY /HPF (NONE SEEN); SQUAMOUS EPITHELIAL CELL,UR FEW /HPF (NONE SEEN)
--- NOTE | 2018-11-02 13:01 | NUR ---
PT EATING FOOD THAT MOTHER BROUGHT FROM OUT SIDE. GOOD APETITE. MD BLEVINSED
--- NOTE | 2018-11-02 13:40 | NUR ---
PT TRANSFERED TO FLOOR IN STABLE CONDITION. NO CHANGE IN PT MENTATION
--- NOTE | 2018-11-02 14:00 | NUR ---
Admitted 58 year old female with dx of AMS/SEPSIS. AAOx4. Jaundiced skin color noted. No acute distress at this time. Denies pain. IV on right wrist and left AC intact and patent. Patient ambulatory but unsteady with one person standby assist. Routine admission care completed. Assessments done. Plan of care initiated. Tele monitors placed. Safety and comfort measures initiated. Will continue to monitor throughout shift.
[2018-11-02 15:00] VITALS: BP 94/52
[2018-11-02] MEDS ORDERED: TRAZODONE 50 MG TABLET PO PRN (15:30)
[2018-11-02] MEDS ORDERED: MORPHINE SULFATE 2 MG/1 ML DISP.SYRIN IV PRN (15:30)
[2018-11-02] MEDS ORDERED: ONDANSETRON 4 MG/2 ML VIAL IV PRN (15:30)
[2018-11-02] MEDS ORDERED: ACETAMINOPHEN 650 MG SUPP.RECT RC PRN (15:30)
--- NOTE | 2018-11-02 15:47 | NUR ---
Clinical Pharmacy Note: Vancomycin Dosing per Pharmacy Subjective: Vancomycin IV to start on this 58 yo female patient for UTI Objective: BUN 11/Scr 0.6 WBC 9.9 Temperature 97.5 ht 165 cm wt 57 kg Assessment/Plan: Will start vancomycin 1000mg IVPB Q15hr for a predicted vancomycin steady state trough level of 15 mcg/ml. 1st dose today at 1600. Will draw a vancomycin trough level prior to the 4th dose of vancomycin (not ordered yet). Will monitor renal function and adjust vancomycin dose, if needed, should renal function change significantly. Will follow daily.
[2018-11-02] MEDS: VANCOMYCIN IV 1 G in PREMIXED 0 EACH IV SCH (16:30)
[2018-11-02] MEDS: POTASSIUM CHLORIDE 20 MEQ in IV D5/ 0.9% NACL 1,000 ML IV PRN (16:30)
[2018-11-02 20:00] VITALS: BP 95/48
--- NOTE | 2018-11-02 20:14 | NUR ---
Patient currently resting comfortably in bed. No change in status. NO acute distress noted. Continue plan of care. Endorsed.
[2018-11-02] MEDS ORDERED: PIPERACILLIN/TAZOBACTAM/D5W 3.375 G in PREMIXED 1 EACH IV SCH ×4 (22:00)
[2018-11-02] MEDS ORDERED: MEROPENEM 1 G in IV NORMAL SALINE 100 ML IV SCH (22:00)
[2018-11-02] MEDS: MEROPENEM 1 G in IV NORMAL SALINE 100 ML IV SCH (22:04)
[2018-11-03] VITALS: BP 104/53
[2018-11-03 04:00] VITALS: BP 94/45
[2018-11-03] MEDS: MEROPENEM 1 G in IV NORMAL SALINE 100 ML IV SCH ×3 (05:15→21:22)
[2018-11-03 06:41] LABS: BASOPHILS % (AUTO) 0.2 % (0.0-2.0); EOSINOPHILS # (AUTO) 0.1 K/uL (0.0-0.7); MONOCYTES # (AUTO) 0.8 K/uL (2.0-10.0)
[2018-11-03 06:52] LABS: EOSINOPHILS % (AUTO) 1.1 % (0.0-7.0); LYMPHOCYTES # (AUTO) 0.5 K/uL (20.0-40.0); LYMPHOCYTES % (AUTO) 5.8 % (20.5-51.5); MEAN CORPUSCULAR HEMOGLOBIN 38.9 uug (24.7-32.8); MEAN CORPUSCULAR HGB CONC 35 g/dL (32.3-35.6); MEAN CORPUSCULAR VOLUME 110.7 fL (75.5-95.3); MONOCYTES % (AUTO) 9.5 % (0.0-11.0); NEUTROPHILS # (AUTO) 6.7 K/uL (1.8-8.9); NEUTROPHILS % (AUTO) 83.4 % (38.5-71.5); WHITE BLOOD COUNT (AUTO) 8.1 K/uL (3.8-11.8)
[2018-11-03 06:53] LABS: HEMOGLOBIN 10.1 g/dL (10.9-14.3)
[2018-11-03 06:54] LABS: HEMATOCRIT 28.8 % (31.2-41.9)
[2018-11-03 06:57] LABS: PLATELET COUNT (AUTO) 38 K/uL (179-408)
[2018-11-03 07:07] LABS: IRON, SERUM 112 ug/dL (50-175)
[2018-11-03 07:11] LABS: ALANINE AMINOTRANSFERASE 21 U/L (14-59); ALKALINE PHOSPHATASE 151 U/L (50-136); ASPARTATE AMINOTRANSFERASE 52 U/L (15-37); BILIRUBIN,TOTAL 19.1 mg/dL (0.2-1.0); CARBON DIOXIDE 26 mmol/L (21-32); CHLORIDE 100 mmol/L (98-107); CREATININE 0.8 mg/dL (0.6-1.3); GLUCOSE 133 mg/dL (74-106); HDL CHOLESTEROL 19 mg/dL (40-60); MAGNESIUM 1.5 mg/dL (1.8-2.4); PHOSPHOROUS 1.7 mg/dL (2.5-4.9); POTASSIUM 2.9 mmol/L (3.5-5.1); TOTAL PROTEIN, SERUM 4.6 g/dL (6.4-8.2); TRIGLYCERIDES 70 MG/DL (30-150); UREA NITROGEN, BLOOD 9 mg/dL (7-18)
[2018-11-03 07:21] LABS: CHOLESTEROL < 50 mg/dL (<200)
--- NOTE | 2018-11-03 07:31 | NUR ---
Pt is A&O x 2, with periods of confusion. Calm & cooperative. IV to LAC, D5 NS + 20 KCL infusing at 100 cc/hr. Up to the BR with assist. No acute changes throughout the shift. Critical labs called in this Morning. notified.
--- NOTE | 2018-11-03 08:00 | NUR ---
Received patient awake, resting comfortably in bed. Jaundice throughout body. Patient AAOx3 with some episodes of confusion. Received critical lab values of albumin:1.4; lactic acid: 2.1, Plt count: 38*, positive blood culture: gram negative tari. notified and aware. No new orders. IV on left AC intact and patent.
[2018-11-03 08:43] LABS: BAND % (MANUAL) 7 % (0-10); EOSINOPHILS % (MANUAL) 2 % (0-8); LYMPHOCYTES % (MANUAL) 6 % (20-40); MONOCYTES % (MANUAL) 5 % (2-10); NEUTROPHILS % (MANUAL) 78 % (42-75)
[2018-11-03 08:44] LABS: METAMYELOCYTES % 2 % (0-1)
[2018-11-03] MEDS: VANCOMYCIN IV 1 G in PREMIXED 0 EACH IV SCH (09:37)
[2018-11-03] MEDS: FAMOTIDINE. 20 MG/2 ML VIAL IV SCH (09:57)
--- NOTE | 2018-11-03 10:00 | NUR ---
Patient seen by Basil. Received new orders.
[2018-11-03 11:15] VITALS: BP 97/49
[2018-11-03] MEDS: LACTULOSE 20 G/30 ML LIQUID UDC PO SCH ×3 (11:43→22:06)
[2018-11-03] MEDS: POTASSIUM CHLORIDE 20 MEQ TAB.PRT.SR PO SCH ×3 (11:46→18:17)
--- NOTE | 2018-11-03 13:39 | NUR ---
Clinical Pharmacy Note: Vancomycin Dosing per Pharmacy Subjective: Vancomycin IV to continue on this 58 yo female patient for UTI Objective: BUN 9/Scr 0.8 WBC 8.1 Temperature 98.6 ht 165 cm wt 57 kg Assessment/Plan: Will continue same dose of vancomycin 1000mg IVPB Q15hr for today. 3rd dose today at 2200. Will draw a vancomycin trough level prior to the 4th dose of vancomycin (ordered for 11/04 at 1230). Will monitor renal function and adjust vancomycin dose, if needed, should renal function change significantly. Will follow daily.
[2018-11-03] MEDS: MAGNESIUM SULFATE/D5W 100 ML IV SCH ×2 (15:22→18:30)
[2018-11-03] MEDS: POTASSIUM CHLORIDE 20 MEQ in IV D5/ 0.9% NACL 1,000 ML IV PRN (15:32)
[2018-11-03 15:34] VITALS: BP 94/59
[2018-11-03] MEDS ORDERED: NEUTRA PHOS PACKET PO ONE (15:45)
[2018-11-03] MEDS ORDERED: RIFAXIMIN 550 MG TABLET PO ONE (17:00)
--- NOTE | 2018-11-03 18:30 | NUR ---
Received call from pharmacy with concern regarding Rifaximin order and notified MD at 1300. Called pharmacy regarding scheduled dose at 1700. Was told that they have not been contacted back by MD and was told it was okay to administer this dose until he is reached.
--- NOTE | 2018-11-03 19:38 | NUR ---
Patient currently resting in bed. No acute distress. No SOB. Tolerating ordered medications. Continue plan of care.
[2018-11-03 20:00] VITALS: BP 107/55
[2018-11-04 05:00] VITALS: BP 90/41
[2018-11-04] MEDS: MEROPENEM 1 G in IV NORMAL SALINE 100 ML IV SCH ×3 (05:06→21:28)
[2018-11-04] MEDS: LACTULOSE 20 G/30 ML LIQUID UDC PO SCH (06:00)
[2018-11-04 06:49] LABS: EOSINOPHILS # (AUTO) 0.1 K/uL (0.0-0.7); EOSINOPHILS % (AUTO) 1.3 % (0.0-7.0); LYMPHOCYTES # (AUTO) 0.5 K/uL (20.0-40.0); NEUTROPHILS # (AUTO) 5.7 K/uL (1.8-8.9)
[2018-11-04 06:51] LABS: BASOPHILS % (AUTO) 0.3 % (0.0-2.0); HEMATOCRIT 27.9 % (31.2-41.9); HEMOGLOBIN 9.9 g/dL (10.9-14.3); LYMPHOCYTES % (AUTO) 7.6 % (20.5-51.5); MEAN CORPUSCULAR HEMOGLOBIN 39.5 uug (24.7-32.8); MEAN CORPUSCULAR HGB CONC 36 g/dL (32.3-35.6); MEAN CORPUSCULAR VOLUME 111.1 fL (75.5-95.3); MONOCYTES # (AUTO) 0.8 K/uL (2.0-10.0); MONOCYTES % (AUTO) 11.1 % (0.0-11.0); NEUTROPHILS % (AUTO) 79.7 % (38.5-71.5); RED BLOOD CELL COUNT(AUTO) 2.51 MIL/uL (3.63-4.92); WHITE BLOOD COUNT (AUTO) 7.2 K/uL (3.8-11.8)
[2018-11-04 07:01] LABS: CREATININE 0.8 mg/dL (0.6-1.3); MAGNESIUM 1.9 mg/dL (1.8-2.4); PHOSPHOROUS 2.1 mg/dL (2.5-4.9); POTASSIUM 3.4 mmol/L (3.5-5.1)
[2018-11-04 07:26] LABS: PLATELET COUNT (AUTO) 37 K/uL (179-408)
[2018-11-04 07:27] LABS: NEUTROPHILS % (MANUAL) 80 % (42-75)
[2018-11-04 07:28] LABS: EOSINOPHILS % (MANUAL) 1 % (0-8); LYMPHOCYTES % (MANUAL) 8 % (20-40); MONOCYTES % (MANUAL) 11 % (2-10)
[2018-11-04] MEDS ORDERED: RIFAXIMIN 550 MG TABLET PO ONE (09:00)
[2018-11-04] MEDS: FAMOTIDINE. 20 MG/2 ML VIAL IV SCH (09:11)
[2018-11-04] MEDS ORDERED: LACTULOSE 20 G/30 ML LIQUID UDC PO PRN (11:00)
[2018-11-04] MEDS ORDERED: POTASSIUM CHLORIDE 20 MEQ TAB.PRT.SR PO ONE (11:00)
[2018-11-04 11:40] VITALS: BP 92/55
[2018-11-04] MEDS ORDERED: NEUTRA PHOS PACKET PO ONE (15:15)
[2018-11-04] MEDS: POTASSIUM CHLORIDE 20 MEQ in IV D5/ 0.9% NACL 1,000 ML IV PRN (15:36)
[2018-11-04 15:44] VITALS: BP 93/55
[2018-11-04] MEDS: RIFAXIMIN 550 MG TABLET PO SCH (17:13)
--- NOTE | 2018-11-04 19:00 | NUR ---
Patient rested well in between care. Midline RAYMOND intact and patent with IVF running. Tolerated routine meds. Jaundiced. Receiving 2L NC. Seen by RAGMAN and MD, new orders received. Full liquid diet advanced to regular diet. Patient tolerating well. AAOx3. Patient appears less confused than yesterday. Denies pain. No SOB. Comfort and safety maintained at all times and effective. Continue plan of care.
--- NOTE | 2018-11-04 19:40 | NUR ---
Received patient awake and alert. No signs of acute distress noted. No complaints of pain or SOB, patient on 2L NC saturating on 98% IVF running on the RAYMOND midline. Safety measures initiated. Bed is low and locked, call light within reach. Will continue to monitor.
[2018-11-04 20:00] VITALS: BP 92/59
[2018-11-04] MEDS: FAMOTIDINE 20 MG TABLET PO SCH (21:26)
[2018-11-05 03:32] VITALS: BP 101/46
[2018-11-05] MEDS: MEROPENEM 1 G in IV NORMAL SALINE 100 ML IV SCH (05:39)
--- NOTE | 2018-11-05 06:06 | NUR ---
Patient slept well throughout shift. No signs of acute distress noted. No complaints of pain. Patient started to get anxious about her US in the morning, explained to patient what the procedure was and she stated "oh i know, i've had US before, i'm just nervous about it" Medications given as ordered. Safety measures given.
[2018-11-05 07:33] LABS: BASOPHILS # (AUTO) 0.1 K/uL (0.0-8.0); EOSINOPHILS # (AUTO) 0.1 K/uL (0.0-0.7); EOSINOPHILS % (AUTO) 1.4 % (0.0-7.0); HEMATOCRIT 27.8 % (31.2-41.9); HEMOGLOBIN 9.6 g/dL (10.9-14.3); LYMPHOCYTES # (AUTO) 0.6 K/uL (20.0-40.0); MEAN CORPUSCULAR HEMOGLOBIN 39.1 uug (24.7-32.8); MEAN CORPUSCULAR HGB CONC 35 g/dL (32.3-35.6); MEAN CORPUSCULAR VOLUME 113.2 fL (75.5-95.3); MONOCYTES # (AUTO) 0.8 K/uL (2.0-10.0); MONOCYTES % (AUTO) 12.7 % (0.0-11.0); NEUTROPHILS # (AUTO) 4.6 K/uL (1.8-8.9); NEUTROPHILS % (AUTO) 74.9 % (38.5-71.5); WHITE BLOOD COUNT (AUTO) 6.1 K/uL (3.8-11.8)
[2018-11-05 07:43] LABS: CREATININE 0.6 mg/dL (0.6-1.3); PHOSPHOROUS 2.8 mg/dL (2.5-4.9); POTASSIUM 3.5 mmol/L (3.5-5.1)
[2018-11-05 08:22] LABS: PLATELET COUNT (AUTO) 35 K/uL (179-408); RED BLOOD CELL COUNT(AUTO) 2.46 MIL/uL (3.63-4.92)
[2018-11-05 08:26] LABS: EOSINOPHILS % (MANUAL) 1 % (0-8); LYMPHOCYTES % (MANUAL) 12 % (20-40); MONOCYTES % (MANUAL) 11 % (2-10); NEUTROPHILS % (MANUAL) 76 % (42-75)
[2018-11-05] MEDS: FAMOTIDINE 20 MG TABLET PO SCH ×2 (09:29→21:07)
[2018-11-05] MEDS: RIFAXIMIN 550 MG TABLET PO SCH ×2 (09:29→16:28)
[2018-11-05 12:03] VITALS: BP 94/55
[2018-11-05] MEDS: CEFTRIAXONE 1 G in IV DEXTROSE 5% 50 ML IV SCH (13:14)
[2018-11-05 16:31] VITALS: BP 99/47
--- NOTE | 2018-11-05 18:52 | NUR ---
PATIENT RESTED THROUGHOUT DAY, NO DISTRESS NOTED, NO SOB. BED IN LOWEST POSITION, SIDE RAILS UP X2 WITH CALL LIGHT AT REACH. IV ANTIBIOTICS GIVEN ORDERED. SAFETY MEASURED PROVIDED.
[2018-11-05 19:46] VITALS: BP 113/65
[2018-11-06 05:27] VITALS: BP 96/46
[2018-11-06] MEDS: RIFAXIMIN 550 MG TABLET PO SCH ×2 (08:18→16:26)
[2018-11-06] MEDS: FAMOTIDINE 20 MG TABLET PO SCH ×2 (08:18→21:04)
--- NOTE | 2018-11-06 09:04 | NUR ---
INFORMATION SENT: FACESHEET, PROGRESS NOTES 11/05, 24 HRS REPORT, UR 11/05. INSURANCE NAME:HAILY BURNETT O / [employer] FAX NUMBER: [phone] / [phone] FAX SENT
[2018-11-06] MEDS ORDERED: IOHEXOL 350 100 ML INFUS..BTL ONE (09:43)
[2018-11-06] MEDS ORDERED: IV NORMAL SALINE 250 ML IV ONE (09:43)
[2018-11-06] MEDS ORDERED: SWABABLE VALVE TRANSFER SET EA MC ONE (09:43)
[2018-11-06 10:30] VITALS: BP 104/57
[2018-11-06] MEDS: CEFTRIAXONE 1 G in IV DEXTROSE 5% 50 ML IV SCH (12:47)
[2018-11-06 15:56] VITALS: BP 113/50
--- NOTE | 2018-11-06 18:23 | NUR ---
Patient resting in bed comfortably, no distress noted or complaints of pain. Will endorse care to oncoming shift.
--- NOTE | 2018-11-06 19:30 | NUR ---
PATIENT RECEIVED LYING IN BED. A/O X3. NO SIGNS OF ACUTE DISTRESS. COMFORT AND SAFETY MEASURES PROVIDED. BED IN LOWEST POSITION, BED ALARM ON, CALL LIGHT WITHIN REACH, SIDE RAILSX2.
[2018-11-06 20:00] VITALS: BP 107/59
[2018-11-07 04:34] VITALS: BP 106/43
--- NOTE | 2018-11-07 06:20 | NUR ---
PATIENT SLEEPING INTERMITTENTLY. A/O X3. NO SIGNS OF ACUTE DISTRESS. COMFORT AND SAFETY MEASURES PROVIDED. BED IN LOWEST POSITION, BED ALARM ON, CALL LIGHT WITHIN REACH, SIDE RAILSX2. WILL CONTINUE TO MONITOR AND ENDORSE PATIENT TO ONCOMING SHIFT FOR CONTINUING CARE.
[2018-11-07] MEDS: RIFAXIMIN 550 MG TABLET PO SCH (09:16)
[2018-11-07] MEDS: FAMOTIDINE 20 MG TABLET PO SCH (09:16)
[2018-11-07 11:30] VITALS: BP 106/60
[2018-11-07] MEDS ORDERED: RIFA550T PO (11:33)
[2018-11-07] MEDS ORDERED: CEFT1FRO2 IV (11:33)
[2018-11-07] MEDS: CEFTRIAXONE 1 G in IV DEXTROSE 5% 50 ML IV SCH (14:38)
--- NOTE | 2018-11-07 15:30 | NUR ---
AMBULANCE HER TO PICK HER UP AND TAKE HER TO [facility]. D/C PICS TAKEN BELONGINGS LIST RECIONCILED. REPORT GIVEN TO RECEIVING FACILITY VSS AND TAKEN AND PUT IN SPRAY PAINTER NOTES
== END 2018-11-07 15:35 | DRG 720 ==
LOC: ER 10:39 → TELE3 13:30 → MEDSURG3 11-03 17:49
PROVIDERS: ADMIT Internal Medicine; ATTEND Internal Medicine
PROC: 05HY33Z Insertion of Infusion Device into Upper Vein, Percutaneous Approach (ICD-10-PCS; principal; 2018-11-03)
DX: A41.51 Sepsis due to Escherichia coli [E. coli] (principal); E43 Unspecified severe protein-calorie malnutrition; G93.41 Metabolic encephalopathy; Z76.82 Awaiting organ transplant status; E87.2 Acidosis; I85.00 Esophageal varices without bleeding; D68.4 Acquired coagulation factor deficiency; D69.59 Other secondary thrombocytopenia; I85.10 Secondary esophageal varices without bleeding; K70.31 Alcoholic cirrhosis of liver with ascites; K70.40 Alcoholic hepatic failure without coma; K72.90 Hepatic failure, unspecified without coma; K74.60 Unspecified cirrhosis of liver; R65.20 Severe sepsis without septic shock; N39.0 Urinary tract infection, site not specified; F17.211 Nicotine dependence, cigarettes, in remission; F10.21 Alcohol dependence, in remission; Z68.22 Body mass index [BMI] 22.0-22.9, adult; K57.30 Diverticulosis of large intestine without perforation or abscess without bleeding; K44.9 Diaphragmatic hernia without obstruction or gangrene; E87.6 Hypokalemia; Z90.710 Acquired absence of both cervix and uterus; Z87.01 Personal history of pneumonia (recurrent); Z86.010 Personal history of colon polyps; Z91.19 Patient's noncompliance with other medical treatment and regimen; Z79.899 Other long term (current) drug therapy; N20.0 Calculus of kidney; K64.8 Other hemorrhoids; J44.9 Chronic obstructive pulmonary disease, unspecified; I25.2 Old myocardial infarction; E87.1 Hypo-osmolality and hyponatremia; E83.42 Hypomagnesemia; E83.39 Other disorders of phosphorus metabolism; D53.9 Nutritional anemia, unspecified; I48.91 Unspecified atrial fibrillation; S00.83XA Contusion of other part of head, initial encounter; W19.XXXA Unspecified fall, initial encounter; Y92.89 Other specified places as the place of occurrence of the external cause
CPT/HCPCS: 36415; 70030-TC; 70450; 71045; 74160; 76705; 83550; 83605; 83735; 84100; 84443; 85025; 85730; 87040; 87077; 87086; 93005; 97116; 97530; A4663; G0378; J0696; J2185; J2543; J3370; J3475; J3480; J3490; J7040; J7042; J7050; J7060; Q9967

== ENCOUNTER 2019-02-15 16:25 | Emergency (ER) | payer OTHER ==
[~2019-02-15] VITALS: Ht 165.1 cm; Wt 58.1 kg
[~2019-02-15 16:25] MED LIST changes: +ALBU0.63 IH; +CEFT1FRO2 IV; +CITA20TA19 PO; +FURO-151 PO; +HYDR10SY16 PO; +MAGN400T6 PO; +PANT40TA2 PO; +RIFA550T PO; +SPIR25TA6 PO; +TRAZ-182 PO
--- NOTE | 2019-02-15 17:13 | NUR ---
Patient discharged to home in stable conditon. Written and verbal after care instructions given. Patient verbalizes understanding of instructions.
== END 2019-02-15 17:18 | disposition home or self-care (01) ==
LOC: ER 16:25
DX: S92.411A Displaced fracture of proximal phalanx of right great toe, initial encounter for closed fracture (principal); I48.91 Unspecified atrial fibrillation; I50.9 Heart failure, unspecified; F32.9 Major depressive disorder, single episode, unspecified; Z79.899 Other long term (current) drug therapy; W19.XXXA Unspecified fall, initial encounter; Y93.89 Activity, other specified; Y92.89 Other specified places as the place of occurrence of the external cause; Y99.8 Other external cause status
CPT/HCPCS: 73630; A4663